=== PATIENT | female | born 1965 | race Caucasian/White ===

== ENCOUNTER 2016-11-28 17:40 | Emergency (ER) | payer MEDICARE, OTHER ==
[~2016-11-28 17:40] MED LIST: ASPIR 8181 MG PO; BENTYL 20MG TAB20 MG PO; BENTYL20 MG PO; DRISDOL50000 UNIT PO; FIORICET TAB1 EA PO; FOLIC ACID1 MG PO; FOSAMAX70 MG PO; IMITREX100 MG PO; KLONOPIN TAB 00.5 MG PO; LISINOPRIL-HCT1 EAC1 PO; METOPROLOL SUCC50 MG PO; METOPROLOL TART25 MG PO; OXYCODONE HCL15 MG PO; PERCOCET 10-321 EACH PO; PROTONIX40 MG PO; SINGULAIR10 MG PO; SOMA350 MG PO; SYMBICORT INHALER INH; TRAVATAN Z2.5 ML OP; TRAVATAN Z2.5 ML OU; VENTOLIN INHALER INH; VIT D PO; VITAMIN D50000 UNIT PO; XARELTO20 MG PO; ZOFRAN4 MG PO
[2016-11-28 22:18] LABS: HEMOGLOBIN 13.1 gm/dl (12.3-15.3); RED BLOOD COUNT 5.15 M/UL (4.00-5.10); WHITE BLOOD COUNT 6.5 K/UL (4.5-11.0)
[2016-11-28 22:39] LABS: BUN/CREATININE RATIO 23 (0-10)
== END 2016-11-29 01:50 | disposition home or self-care (01) ==
LOC: ER1 17:40
PROVIDERS: Family Medicine
DX: R09.1 Pleurisy (principal); R00.2 Palpitations; R61 Generalized hyperhidrosis; Z86.711 Personal history of pulmonary embolism
CPT/HCPCS: 36415; 70450; 80053; 82550; 82553; 83874; 84484; 85025; 85379; 85610; 93005; 99285; J7050; Q9963

== ENCOUNTER → 2016-12-19 | Outpatient (CLI) | payer MEDICARE, OTHER | LOC: HEART 5 11:18 | DX: J45.909 Unspecified asthma, uncomplicated (principal) | CPT/HCPCS: 94010 ==

== ENCOUNTER → 2017-01-03 | Outpatient (CLI) | payer MEDICARE, OTHER | LOC: HEART 5 11:30 | DX: I27.2 Other secondary pulmonary hypertension (principal) | CPT/HCPCS: 93306 ==

== ENCOUNTER 2021-10-06 03:28 | Emergency (ER) | payer MEDICARE, OTHER ==
[~2021-10-06 03:28] MED LIST changes: +CRESTOR 10 MG T10 MG PO; +KLONOPIN1 MG PO; +LISINOPRIL-HCT1 EACH PO; +LYRICA 75 MG CA75 MG PO; +NITROGLYCERIN0.4 MG SL; +OXYCODONE HCL10 MG PO; -OXYCODONE HCL15 MG PO; +SKELAXIN800 MG PO
[2021-10-06 04:17] LABS: HEMOGLOBIN 13.5 gm/dl (12.3-15.3); RED BLOOD COUNT 5.36 M/UL (4.00-5.10); WHITE BLOOD COUNT 21.2 K/UL (4.5-11.0)
[2021-10-06 04:43] LABS: BUN/CREATININE RATIO 44 (0-10)
[2021-10-06] MEDS ORDERED: METOPROLOL SUCC25 MG PO (05:47)
== END 2021-10-06 06:05 | disposition home or self-care (01) ==
LOC: ER1 03:28
PROVIDERS: Family Medicine
DX: R07.89 Other chest pain (principal); I10 Essential (primary) hypertension; D72.829 Elevated white blood cell count, unspecified; F41.9 Anxiety disorder, unspecified; F11.20 Opioid dependence, uncomplicated
CPT/HCPCS: 80048; 81001; 82550; 82553; 83605; 83874; 84439; 84443; 84484; 85025; 85610; 93005; 96374; 99285; Q9967